=== PATIENT | female | born 1945 | race Caucasian/White ===

== ENCOUNTER 2016-07-28 12:07 | Emergency (ER) | payer MEDICAID ==
[~2016-07-28] VITALS: Ht 152.4 cm; Wt 65.5 kg
[~2016-07-28 12:07] MED LIST: AMIT25TA9 PO; AMLO-511 PO; ATOR40TA28 PO; HYDR25TA PO; LOSA50TA37 PO; METF500T4 PO; PROP10 PO
[2016-07-28 12:27] LABS: GLUCOSE,POINT OF CARE 117 MG/DL (70-110)
[2016-07-28] MEDS ORDERED: NAPR250T2 PO (12:29)
[2016-07-28 14:16] VITALS: BP 148/80
[2016-07-28 15:27] LABS: INFLUENZA TYPE B NEGATIVE FOR TYPE B (NEGATIVE)
[2016-07-28] MEDS ORDERED: ONDANSETRON HCL 4 MG TABLET PO ONE (15:30)
== END 2016-07-28 16:29 | disposition home or self-care (01) ==
LOC: EMS 12:08
DX: B34.9 Viral infection, unspecified (principal); E11.9 Type 2 diabetes mellitus without complications; I10 Essential (primary) hypertension; E78.00 Pure hypercholesterolemia, unspecified; K21.9 Gastro-esophageal reflux disease without esophagitis
CPT/HCPCS: 71020; 82962; 87804; 99285; Q0162

== ENCOUNTER 2017-02-18 12:41 | Emergency (ER) | payer MEDICAID ==
[~2017-02-18] VITALS: Ht 152.4 cm; Wt 68.2 kg
[~2017-02-18 12:41] MED LIST changes: +NAPR250T4 PO; -PROP10 PO; +PROP10TA73 PO
[2017-02-18] MEDS ORDERED: GUAI-1063 PO (12:52)
[2017-02-18] MEDS ORDERED: CEPH500 PO (12:52)
[2017-02-18 13:20] VITALS: BP 158/74
[2017-02-18] MEDS ORDERED: NAPR-1142 PO (13:34)
[2017-02-18] MEDS ORDERED: ALBUTEROL SULFATE HFA 90 MCG/PUFF 8 GM INHALER IH ONE (13:45)
== END 2017-02-18 14:32 | disposition home or self-care (01) ==
LOC: EMS 12:42
DX: J02.9 Acute pharyngitis, unspecified (principal); J40 Bronchitis, not specified as acute or chronic; M54.9 Dorsalgia, unspecified; I10 Essential (primary) hypertension; E11.9 Type 2 diabetes mellitus without complications; K21.9 Gastro-esophageal reflux disease without esophagitis; E78.00 Pure hypercholesterolemia, unspecified; Z88.0 Allergy status to penicillin
CPT/HCPCS: 71020; 82948; 94640; 99284; J3535

== ENCOUNTER 2018-04-05 11:49 | Emergency (ER) | payer MEDICAID ==
[~2018-04-05] VITALS: Ht 152.4 cm; Wt 72.7 kg
[~2018-04-05 11:49] MED LIST changes: +CEPH500 PO; +GUAI-1063 PO; -LOSA50TA37 PO; +LOSA50TA64 PO; +METF-444 PO; -METF500T4 PO; +NAPR-1142 PO; -NAPR250T4 PO
[2018-04-05 11:56] VITALS: BP 136/67
[2018-04-05] MEDS ORDERED: ALBUTEROL SULFATE HFA 90 MCG/PUFF 8 GM INHALER IH ONE (12:30)
[2018-04-05] MEDS ORDERED: BENZONATATE 100 MG CAPSULE PO ONE (12:30)
[2018-04-05] MEDS ORDERED: BENZOCAINE/MENTHOL LOZENGE PO ONE (12:30)
[2018-04-05 12:39] LABS: GLUCOSE,POINT OF CARE 120 MG/DL (70-110)
== END 2018-04-05 13:04 | disposition home or self-care (01) ==
LOC: EMS 11:49
DX: J06.9 Acute upper respiratory infection, unspecified (principal); E11.9 Type 2 diabetes mellitus without complications; E78.00 Pure hypercholesterolemia, unspecified; I10 Essential (primary) hypertension; K21.9 Gastro-esophageal reflux disease without esophagitis; Z90.710 Acquired absence of both cervix and uterus; Z88.0 Allergy status to penicillin; Z79.899 Other long term (current) drug therapy; Z79.84 Long term (current) use of oral hypoglycemic drugs
CPT/HCPCS: 94640; J3535

== ENCOUNTER 2023-11-04 10:25 | Emergency (ER) | payer MEDICAID ==
[~2023-11-04] VITALS: Ht 152.4 cm; Wt 54.5 kg
[~2023-11-04 10:25] MED LIST changes: +AMLO-257 PO; -AMLO-511 PO; +CEPH-558 PO; -CEPH500 PO; -GUAI-1063 PO; +GUAI-1372 PO; +LOSA-382 PO; -LOSA50TA64 PO
[2023-11-04 10:32] VITALS: TEMP 97.6
[2023-11-04 10:47] LABS: COVID AG,FIA SOURCE NASAL SWAB
[2023-11-04 11:01] LABS: BASOPHILS % (AUTO) 0.3 % (0.0-2.0); EOSINOPHILS % (AUTO) 0.1 % (1.0-6.0); HEMATOCRIT 37.6 % (36-46); HEMOGLOBIN 12.5 g/dL (12.0-16.0); LYMPHOCYTES # (AUTO) 1.1 K/uL (1.0-4.8); LYMPHOCYTES % (AUTO) 14.8 % (22.0-44.0); MEAN CORPUSCULAR HEMOGLOBIN 31.3 pg (26.0-34.0); MEAN CORPUSCULAR HGB CONC 33.2 G/dL (31.0-37.0); MEAN CORPUSCULAR VOLUME 94 fL (80-100); MONOCYTES # (AUTO) 0.4 K/uL (0.1-1.0); MONOCYTES % (AUTO) 5.4 % (2.0-9.0); NEUTROPHILS % (AUTO) 79.4 % (40.0-70.0); PLATELET COUNT (AUTO) 335 K/uL (150-450); RED BLOOD CELL COUNT(AUTO) 3.99 MIL/uL (4.00-5.20); RED CELL DISTRIBUTION WIDTH 13.3 % (11.5-14.5); WHITE BLOOD COUNT (AUTO) 7.5 K/uL (4.5-11.0)
[2023-11-04 11:15] LABS: ANION GAP 8 mmol/L (8-16); CALCIUM, TOTAL 9.2 mg/dL (8.8-10.5); CARBON DIOXIDE 28 mmol/L (22-29); CHLORIDE 96 mmol/L (98-107); CREATININE 0.95 mg/dL (0.60-1.30); GLOMERULAR FILTR. RATE CALC 57 mL/min (>60); GLUCOSE,RANDOM 136 mg/dL (70-110); POTASSIUM 3.3 mmol/L (3.5-5.1); SODIUM SERUM 132 mmol/L (136-145); UREA NITROGEN, BLOOD 7 mg/dL (7-18)
[2023-11-04 11:19] LABS: SARS-COV2 (COVID) ANTIGEN,FIA Negative (Negative)
[2023-11-04 11:20] LABS: INFLUENZA TYPE A NEGATIVE FOR TYPE A (NEGATIVE); INFLUENZA TYPE B NEGATIVE FOR TYPE B (NEGATIVE)
[2023-11-04 11:34] LABS: TROPONIN I-HIGH SENSITIVITY 7 ng/L (<51)
[2023-11-04 12:33] LABS: APPEARANCE,URINE CLEAR (CLEAR); BILIRUBIN,URINE NEGATIVE (NEGATIVE); COLOR,URINE COLORLESS (YELLOW); GLUCOSE, URINE (UA) NEGATIVE (NEGATIVE); KETONES,URINE NEGATIVE (NEGATIVE); LEUKOCYTE ESTERASE ,URINE NEGATIVE (NEGATIVE); NITRATE,URINE NEGATIVE (NEGATIVE); OCCULT BLOOD,URINE NEGATIVE (NEGATIVE); PH,URINE 7.5 (5.0-8.0); PROTEIN,URINE NEGATIVE (NEGATIVE); SPECIFIC GRAVITIY, URINE 1.005 (1.003-1.030); UROBILINOGEN,URINE <=1.0 mg/dL (<=1.0)
[2023-11-04 12:47] LABS: B-TYPE NATRIURETIC PEPTIDE 47 pg/mL (0-100)
[2023-11-04 12:49] LABS: LACTIC ACID 1.3 mmol/L (0.4-2.0)
[2023-11-04 13:13] LABS: CREATINE KINASE, TOTAL ONLY 60 U/L (26-192)
[2023-11-04] MEDS ORDERED: DOXY-354 PO (14:11)
[2023-11-04] MEDS: KETOROLAC TROMETHAMINE 30 MG/ML VIAL IVP ONE (14:34)
[2023-11-04] MEDS: ONDANSETRON HCL 4 MG/2 ML VIAL IVP ONE (14:43)
[2023-11-04 14:54] VITALS: BP 133/63; PULSE 86; RESP 18; O2SAT 98
== END 2023-11-04 15:00 | disposition home or self-care (01) ==
LOC: EMS 11:12
DX: J18.9 Pneumonia, unspecified organism (principal); R10.32 Left lower quadrant pain; E11.9 Type 2 diabetes mellitus without complications; E78.00 Pure hypercholesterolemia, unspecified; I10 Essential (primary) hypertension; Z90.710 Acquired absence of both cervix and uterus; Z98.890 Other specified postprocedural states; Z88.0 Allergy status to penicillin; Z20.822 Contact with and (suspected) exposure to COVID-19
CPT/HCPCS: 99285; 74176; 96374; 71045; 96375; 87426; 80048; 81003; 82550; 82962; 83605; 83880; 84484; 85025; 87804; 36415; 93005; 84145; J1885; J2405